=== PATIENT | female | born 1980 | race Caucasian/White ===

== ENCOUNTER 2020-05-13 14:12 | Inpatient (IN) | payer MEDICAID ==
[~2020-05-13] VITALS: Ht 157.5 cm; Wt 56.7 kg
[2020-05-14] MEDS ORDERED: loperamide 2mg capsule PO PRN (07:00)
[2020-05-14] MEDS ORDERED: mag hydrox/Alum hydrox/simeth 30ml oral suspension PO PRN (07:00)
[2020-05-14] MEDS ORDERED: NICOTINE POLACRILEX 2 MG LOZENGE BC PRN (07:00)
[2020-05-14] MEDS ORDERED: acetaminophen 325mg tablet PO PRN (07:00)
[2020-05-14] MEDS ORDERED: magnesium hydroxide 30ml (MOM) UD suspension PO PRN (07:00)
[2020-05-14] MEDS ORDERED: CEPH500C2 PO (07:13)
[2020-05-14] MEDS ORDERED: SERT50TA PO (07:13)
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
[2020-05-14 08:00] VITALS: BP 124/64
[2020-05-14] MEDS: cephalexin 500mg capsule PO SCH ×3 (08:32→20:46)
[2020-05-14] MEDS: acetaminophen 325mg tablet PO PRN (08:32)
--- NOTE | 2020-05-14 09:14 | NUR ---
DM Consult: Pt reports hx T2DM pending A1C this admit. Will monitor for A1C results. Addendum: 05/14/20 at [address] Amended: Links added.
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
[2020-05-15] MEDS ORDERED: OLANZapine 5mg rapidly disint. tablet PO ONE (07:05)
[2020-05-15] MEDS: cephalexin 500mg capsule PO SCH ×3 (07:22→20:15)
[2020-05-15] MEDS: acetaminophen 325mg tablet PO PRN (07:22)
[2020-05-15 07:25] VITALS: BP 111/68
[2020-05-15 09:11] LABS: CHOL/HDL RATIO 3.8 (0.00-4.99); CHOLESTEROL 153 MG/DL (0-200); HDL CHOLESTEROL 40 MG/DL (35-60); LDL CHOLESTEROL 94 MG/DL (50-100); TRIGLYCERIDES 85 MG/DL (20-135)
[2020-05-15 09:21] LABS: HEMOGLOBIN A1C 5.3 % (4.5-6.2)
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
[2020-05-15] MEDS ORDERED: Permethrin 1% 59ml topical rinse TP ONE (14:25)
--- NOTE | 2020-05-15 17:25 | NUR ---
LICE INFESTATION. On Isolation.
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
[2020-05-15] MEDS: OLANZapine 5mg rapidly disint. tablet PO SCH (20:14)
[2020-05-15] MEDS: LORazepam 1 MG tablet PO PRN (21:15)
[2020-05-15] MEDS: traZODone 50mg tablet PO PRN (21:16)
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
[2020-05-16 08:00] VITALS: BP 100/63
[2020-05-16] MEDS: OLANZapine 5mg rapidly disint. tablet PO SCH ×2 (08:51→20:07)
[2020-05-16] MEDS: Ivermectin 3mg tablet PO SCH (08:51)
[2020-05-16] MEDS: cephalexin 500mg capsule PO SCH ×3 (08:51→20:07)
[2020-05-16] MEDS ORDERED: Permethrin 1% 59ml topical rinse TP ONE (12:35)
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
[2020-05-16] MEDS: LORazepam 1 MG tablet PO PRN (20:07)
[2020-05-16] MEDS: traZODone 50mg tablet PO PRN (20:07)
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
[2020-05-17 07:21] VITALS: BP 112/60
[2020-05-17] MEDS: cephalexin 500mg capsule PO SCH ×3 (08:43→20:00)
[2020-05-17] MEDS: OLANZapine 5mg rapidly disint. tablet PO SCH ×2 (08:43→19:51)
--- NOTE | 2020-05-17 14:37 | NUR ---
Lice Check: Pt stills has live large lice in hair and several found still alive and some on the floor in room. Pt continues on isolation.
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
[2020-05-17] MEDS: traZODone 50mg tablet PO PRN (19:51)
[2020-05-17] MEDS: LORazepam 1 MG tablet PO PRN (19:51)
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
[2020-05-18 07:42] VITALS: BP 97/41
[2020-05-18] MEDS: cephalexin 500mg capsule PO SCH ×3 (09:01→20:45)
[2020-05-18] MEDS: lactobacillus rhamnosus 10,000 MMU CELLS/CAPSULE PO SCH (09:01)
[2020-05-18] MEDS: OLANZapine 5mg rapidly disint. tablet PO SCH (09:02)
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
[2020-05-18] MEDS ORDERED: OLANZAPINE 5 MG TABLET PO PRN (15:20)
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
[2020-05-18] MEDS: OLANZapine 2.5MG tablet PO SCH (20:45)
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
[2020-05-19 08:00] VITALS: BP 100/64
[2020-05-19] MEDS: OLANZapine 5mg rapidly disint. tablet PO SCH (08:46)
[2020-05-19] MEDS: lactobacillus rhamnosus 10,000 MMU CELLS/CAPSULE PO SCH (08:46)
--- NOTE | 2020-05-19 13:52 | NUR ---
Initial: Pt admit for psychosis. Currently on a regular diet documented with 75-100% PO intake throughout LOS meeting estimated nutrient needs. LBM 05/18. No documented edema or wounds. No nutrition diagnosis at this time. Will continue to follow. Recommendations: 1) Continue regular diet 2) Bowel care per rx 3) Scaled weights per rx Addendum: 05/19/20 at [address] Amended: Links added.
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
--- NOTE | 2020-05-19 18:27 | NUR ---
Reassessed pt's hair. No live lice observed. Pt reports "it feels so much better." "Thank you."
[2020-05-19 20:08] VITALS: BP 121/74
[2020-05-19] MEDS: OLANZapine 2.5MG tablet PO SCH (21:03)
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
[2020-05-20] MEDS: OLANZapine 5mg rapidly disint. tablet PO SCH (07:25)
[2020-05-20] MEDS: lactobacillus rhamnosus 10,000 MMU CELLS/CAPSULE PO SCH (07:25)
[2020-05-20 07:57] VITALS: BP 101/60
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
[2020-05-20] MEDS: OLANZapine 2.5MG tablet PO SCH (20:01)
[2020-05-20 20:33] VITALS: BP 130/61
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
[2020-05-21 08:00] VITALS: BP 110/71
[2020-05-21] MEDS: lactobacillus rhamnosus 10,000 MMU CELLS/CAPSULE PO SCH (08:29)
[2020-05-21] MEDS: OLANZapine 5mg rapidly disint. tablet PO SCH (08:29)
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
[2020-05-21 20:00] VITALS: BP 95/68
[2020-05-21] MEDS: OLANZapine 2.5MG tablet PO SCH (20:40)
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
[2020-05-22 08:02] VITALS: BP 107/75
[2020-05-22] MEDS: OLANZapine 5mg rapidly disint. tablet PO SCH (08:54)
[2020-05-22] MEDS: lactobacillus rhamnosus 10,000 MMU CELLS/CAPSULE PO SCH (08:54)
[2020-05-22] MEDS ORDERED: Permethrin 1% 59ml topical rinse TP ONE (09:25)
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
[2020-05-22 19:00] VITALS: BP 105/57
[2020-05-22] MEDS: OLANZapine 2.5MG tablet PO SCH (21:36)
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
[2020-05-23] MEDS: Ivermectin 3mg tablet PO SCH (07:17)
[2020-05-23] MEDS: OLANZapine 5mg rapidly disint. tablet PO SCH (07:18)
[2020-05-23] MEDS: lactobacillus rhamnosus 10,000 MMU CELLS/CAPSULE PO SCH (07:18)
[2020-05-23 07:30] VITALS: BP 113/59
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
[2020-05-23 19:34] VITALS: BP 92/53
[2020-05-23] MEDS: OLANZapine 2.5MG tablet PO SCH (20:50)
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
[2020-05-24 07:46] VITALS: BP 103/67
[2020-05-24] MEDS: OLANZapine 5mg rapidly disint. tablet PO SCH (08:47)
[2020-05-24] MEDS: lactobacillus rhamnosus 10,000 MMU CELLS/CAPSULE PO SCH (08:47)
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
[2020-05-24 19:31] VITALS: BP 103/53
[2020-05-24] MEDS: OLANZapine 2.5MG tablet PO SCH (21:26)
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
[2020-05-25 07:30] VITALS: BP 117/60
[2020-05-25] MEDS: lactobacillus rhamnosus 10,000 MMU CELLS/CAPSULE PO SCH (09:10)
--- NOTE | 2020-05-25 12:47 | NUR ---
DISCHARGE PLANNING Spoke to Kim over the phone as she is still on contact isolation due to lice. She reported she can stay with her parents in [place] upon discharge. She provided the following address: [address] [place] [address] in [place]. She gave television script writer verbal permission to call her mom. Today she reported her mom's name is Jessi Diez (ph# [phone]). On Monday she stated her mom's name was April Lerma and provided a similar phone number (same last 4 digits, in a different order). Attempted to call the number she provided today. Both phone numbers she provided have a message stating, "this number in unallocated". Kim did state she can stay at the [facility] [facility] if unable to stay with her parents. She provided details about the [facility] and stated she has stayed their before. She reported if she cannot stay at the [facility] she can go to her parent's house. She reported she talked to her mom last weekend. It is unclear if this is true or not. Mellowing Machine Operator does not believe that Kim has gotten any phone calls or made calls out. Plan: When ready for discharge television script writer will arrange follow up appointments with [facility] and [facility]. RICHARD Philippe
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
[2020-05-25 19:58] VITALS: BP 99/59
[2020-05-25] MEDS: OLANZapine 2.5MG tablet PO SCH (20:27)
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
[2020-05-26 07:32] VITALS: BP 140/60
[2020-05-26] MEDS: lactobacillus rhamnosus 10,000 MMU CELLS/CAPSULE PO SCH (08:56)
--- NOTE | 2020-05-26 10:40 | NUR ---
DISCHARGE PLANNING Attempted to reach PK from [facility] to discuss transportation and schedule follow up appointments. She did not answer the phone and the mailbox was full so lead technical writer was unable to request a call back. Will continue to try to contact PK. RICHARD Philippe
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
--- NOTE | 2020-05-26 14:33 | NUR ---
Reassessment: Pt PO 100% avg regular diet meeting needs. Noted pt reported hx T2DM though A1C 5.7 on admit and no home meds listed in EMR per clinical pharmacist; unsure of reported DM accuracy at this time. LBM 05/24. No nutrition concerns at this time. Will continue to monitor. Recommendations: 1) Continue regular diet 2) Bowel care per rx 3) weekly wts Addendum: 05/26/20 at [address] Amended: Links added. Addendum: 05/26/20 at [address] *Clarification: No DM home meds listed in EMR per clinical pharmacist
[2020-05-26] MEDS ORDERED: NICO-731 TOP (18:18)
[2020-05-26] MEDS ORDERED: NICO-668 BC (18:18)
[2020-05-26] MEDS ORDERED: OLAN10TA21 PO (18:18)
[2020-05-26 19:20] VITALS: BP 96/58
[2020-05-26] MEDS: OLANZapine 2.5MG tablet PO SCH (20:16)
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
--- NOTE | 2020-05-27 07:45 | NUR ---
DISCHARGE PLAN Kim is discharging today. [facility] in picking her up at 10 AM to tranpsort her to the [facility]. She is agreeable with this plan. She has follow up scheduled with [facility] on 05/28/20 at 11 AM. 24 hour crisis line numbers provided. RICHARD Philippe
[2020-05-27 08:05] VITALS: BP 98/62
[2020-05-27] MEDS: lactobacillus rhamnosus 10,000 MMU CELLS/CAPSULE PO SCH (09:10)
[2020-05-27] MEDS ORDERED: proCHLORperazine 10 MG/2 ml inj ONE (10:02)
--- NOTE | 2020-05-27 10:16 | NUR ---
DISCHARGE NOTE: Patient was discharged from unit at 1000. Pt was escorted to lobby with EDD Russell. [facility] transported pt to the [facility]. Pt left with all personal belongings. Discharge instructions were reviewed with patient and she verbalized understanding. Pt was alert and tearful. Pt stated "I miss my dad." "We are having a birthday republican for my grandma tonight and everybody is coming." Pt was given a sack lunch and a snack.
== END 2020-05-27 10:00 | disposition short-term general hospital (02) | DRG 750 ==
LOC: ADULT MH 05-14 06:58
PROVIDERS: ADMIT Psychiatry & Neurology Psychiatry; ATTEND Psychiatry & Neurology Psychiatry
DX: F20.9 Schizophrenia, unspecified (principal); E11.9 Type 2 diabetes mellitus without complications; F17.210 Nicotine dependence, cigarettes, uncomplicated; I10 Essential (primary) hypertension; J45.909 Unspecified asthma, uncomplicated; F12.10 Cannabis abuse, uncomplicated; N39.0 Urinary tract infection, site not specified; B85.2 Pediculosis, unspecified; Z20.822 Contact with and (suspected) exposure to COVID-19; Z88.2 Allergy status to sulfonamides
CPT/HCPCS: 36415; 80061; 83036; 87081; 87426; J0780